=== PATIENT | female | born 1940 ===

== ENCOUNTER 2023-11-26 18:27 | Emergency (ER) | payer OTHER ==
[~2023-11-26] VITALS: Ht 167.6 cm; Wt 54.4 kg
[2023-11-26 19:03] LABS: BASOPHILS ABSOLUTE AUTO 0.03 K/mm3 (0.00-0.23); BASOPHILS PERCENT AUTO 1 % (0-2); EOSINOPHILS ABSOLUTE AUTO 0.06 K/mm3 (0.00-0.68); EOSINOPHILS PERCENT AUTO 1 % (0-6); Hemoglobin 15.1 g/dL (11.5-16.0); IMMATURE GRAN ABSOLUTE AUTO 0.02 K/mm3 (0.00-0.10); IMMATURE GRAN PERCENT AUTO 0 % (0-1); LYMPHOCYTES ABSOLUTE AUTO 1.98 K/mm3 (0.84-5.20); LYMPHOCYTES PERCENT AUTO 34 % (21-46); MONOCYTES ABSOLUTE AUTO 0.45 K/mm3 (0.16-1.47); MONOCYTES PERCENT AUTO 8 % (4-13); Mean Corpuscular HGB 32.1 pg (26.0-34.0); Mean Corpuscular HGB Conc 34.3 g/dL (31.5-36.5); Mean Corpuscular Volume 93 fL (80-100); Mean Platelet Volume 10.7 fL (9.1-12.4); NEUTROPHILS ABSOLUTE AUTO 3.36 K/mm3 (1.96-9.15); NEUTROPHILS PERCENT AUTO 57 % (41-73); Platelet Count 171 K/mm3 (150-400); RDW Coefficient Variation 12.5 % (11.7-14.2); RDW Standard Deviation 43.6 fL (35.1-46.3); Red Blood Cell Count 4.71 M/mm3 (3.80-5.20)
[2023-11-26 19:23] LABS: Albumin, Blood 3.9 g/dL (3.4-5.0); Albumin/Globulin Ratio 1.1 (0.8-1.8); Bilirubin, Total 0.8 mg/dL (0.1-1.0); Bun/Creatinine Ratio 20.8 (12.0-20.0); Calcium, Blood 9.6 mg/dL (8.5-10.1); Creatinine, Blood 0.62 mg/dL (0.40-1.00); Globulin, Blood 3.7 g/dL (2.2-4.0); Potassium, Blood 3.5 mmol/L (3.5-5.5); Total Protein, Blood 7.6 g/dL (6.4-8.2)
[2023-11-26] MEDS ORDERED: Celecoxib 100 MG Cap PO ONE (21:15)
[2023-11-26] MEDS ORDERED: Meclizine HCl 25 MG Tab PO ONE (21:15)
[2023-11-26 21:45] LABS: Thyroid Stimulating Hormone 2.14 uIU/mL (0.360-4.800)
[2023-11-26 23:46] LABS: Source, Urine Straight Cath
[2023-11-26 23:49] LABS: Bilirubin, Urine Neg (Neg); Blood, Urine 3+ (Neg); Glucose Qualitative, Urine Neg (Neg); Ketones, Urine Neg (Neg); Leukocyte Esterase, Urine 1+ (Neg); Nitrite, Urine Neg (Neg); Protein, Urine Neg (Neg); Urobilinogen, Urine NORM (Normal)
[2023-11-27 00:27] LABS: Appearance, Urine Clear (Clear); Color, Urine Yellow (P-Yellow)
[2023-11-27 00:28] LABS: Bacteria Few /hpf; Squamous Epithelial Cells Few /hpf (Few); White Blood Cells, Urine 0-2 /hpf (0-5)
[2023-11-27] MEDS ORDERED: CELE100 PO (00:38)
[2023-11-27] MEDS ORDERED: MECL25 PO (00:38)
== END 2023-11-27 01:00 | disposition home or self-care (01) ==
LOC: ER 18:27
PROVIDERS: Emergency Medicine; Physician Assistant
DX: R42 Dizziness and giddiness (principal)
CPT/HCPCS: 80053; 81001; 84443; 85025; 87086; 93005; 93010; 99284-25; A9270

== ENCOUNTER 2023-12-08 14:31 | Emergency (ER) | payer OTHER, MEDICAID ==
[~2023-12-08] VITALS: Ht 147.3 cm; Wt 54.4 kg
[~2023-12-08 14:31] MED LIST: CELE100 PO; MECL25 PO
[2023-12-08] MEDS ORDERED: Ketorolac Tromethamine 10 MG Tab PO ONE (15:20)
== END 2023-12-08 16:00 | disposition home or self-care (01) ==
LOC: ER 14:31
DX: M25.531 Pain in right wrist (principal); W01.0XXA Fall on same level from slipping, tripping and stumbling without subsequent striking against object, initial encounter; Z79.899 Other long term (current) drug therapy
CPT/HCPCS: 29125; 73110; 99283-25; A9270

== ENCOUNTER 2023-12-17 11:27 | Emergency (ER) | payer OTHER ==
[~2023-12-17] VITALS: Ht 154.9 cm; Wt 61.2 kg
== END 2023-12-17 14:01 | disposition home or self-care (01) ==
LOC: ER 11:27
DX: M25.531 Pain in right wrist (principal); F03.90 Unspecified dementia, unspecified severity, without behavioral disturbance, psychotic disturbance, mood disturbance, and anxiety
CPT/HCPCS: 99283